=== PATIENT | male | born 1945 | race Caucasian/White ===

== ENCOUNTER 2018-09-25 09:09 | Emergency (ER) | payer OTHER, MEDICARE ==
[~2018-09-25] VITALS: Ht 170.2 cm; Wt 97.5 kg
[2018-09-25] MEDS ORDERED: DIOVAN 80 MG TA80 M1 PO (09:20)
[2018-09-25] MEDS ORDERED: ALLOPURINOL 10100 M1 PO (09:20)
[2018-09-25] MEDS ORDERED: SYNTHROID137 MC1 PO (09:20)
[2018-09-25] MEDS ORDERED: PROSCAR 5MG TABL5 MG PO (09:20)
[2018-09-25] MEDS ORDERED: FISH OIL 1,001000 M2 PO (09:21)
[2018-09-25] MEDS ORDERED: GLUCOPHAGE XR500 MG PO (09:21)
[2018-09-25] MEDS ORDERED: METFORMIN HCL500 MG PO (09:21)
[2018-09-25] MEDS ORDERED: KEFLEX500 M1 PO (10:23)
[2018-09-25] MEDS ORDERED: NORCO 5-325 TA1 EAC1 PO (10:23)
[2018-09-25 11:16] VITALS: BP 135/55
== END 2018-09-25 11:16 | disposition home or self-care (01) ==
LOC: M.ERS 09:09
DX: S51.011A Laceration without foreign body of right elbow, initial encounter (principal); S40.211A Abrasion of right shoulder, initial encounter; S80.211A Abrasion, right knee, initial encounter; S00.81XA Abrasion of other part of head, initial encounter; E89.0 Postprocedural hypothyroidism; Z98.890 Other specified postprocedural states; V19.49XA Pedal cycle driver injured in collision with other motor vehicles in traffic accident, initial encounter; Y93.55 Activity, bike riding; Y92.89 Other specified places as the place of occurrence of the external cause; Y99.8 Other external cause status